=== PATIENT | female | born 1980 | race American Indian/Alaskan Native ===

== ENCOUNTER 2019-08-19 09:37 | Emergency (ER) | payer MEDICAID ==
[2019-08-19 09:47] VITALS: BP 109/68
[2019-08-19] MEDS ORDERED: FAMOTIDINE 20 MG/2 ML INJ IV ONE (10:51)
[2019-08-19] MEDS ORDERED: diphenhydrAMINE 50 MG/ML VIAL IV ONE (10:51)
[2019-08-19] MEDS ORDERED: dexAMETHasone 20 MG/5 ML VIAL IV ONE (10:51)
[2019-08-19] MEDS ORDERED: MORPHINE 4 MG/1 ML INJ IV ONE (10:51)
[2019-08-19] MEDS ORDERED: ONDANSETRON 4 MG/2 ML INJ IV ONE (10:51)
[2019-08-19] MEDS ORDERED: IPRATROPIUM/ALBUTEROL SULFATE 3 ML AMPUL.NEB IH ONE (10:52)
--- NOTE | 2019-08-19 11:35 | Emergency Department Report ---
ED Allergic Reaction HPI - General Chief complaint: Chest Pain Stated complaint: ALLERGIC REACTION Time Seen by Provider: 08/19/19 10:23 Source: patient Mode of arrival: Ambulatory Limitations: No Limitations - History of Present Illness Initial Comments: 39-year-old female the past medical history of asthma, diabetes, GERD, chronic foot and back pain presents to the hospital complaining of symptoms of allergic reaction. Last week she was bitten by an unknown insect on her forehead and had subsequent swelling to the area. Yesterday she started to have generalized hives and pruritus. She complains of a tingling sensation to her throat without tightness or shortness of breath. Patient complains of sternal chest pain that is constant and worse with palpation and movement since yesterday. She complains of chronic cough occasionally productive of green sputum due to her underlying asthma/bronchitis. She does not have any fevers. She is allergic to methylprednisone and some other medication which she cannot recall the name. Patient has taken Benadryl, GERD medicine, and Tylenol without improvement in symptoms - Related Data Allergies Allergy/AdvReac Type Severity Reaction Status Date / Time methylprednisolone Allergy Itching Verified 08/19/19 09:40 [From Solu-Medrol] ED Review of Systems ROS: Stated complaint: ALLERGIC REACTION Other details as noted in HPI Comment: All other systems reviewed and negative ED Past Medical Hx - Past Medical History Previous Medical History?: Yes Hx Diabetes: Yes Hx GERD: Yes Hx Arthritis: Yes Hx Headaches / Migraines: Yes Hx Asthma: Yes (bronchitis) Additional medical history: chronic back and foot pain - Surgical History Past Surgical History?: Yes Additional Surgical History: foot surgery. tubal ligation - Social History Smoking Status: Current Every Day Smoker Substance Use Type: None ED Physical Exam - General Limitations: No Limitations - Other Other exam information: General: No acute distress Head: Atraumatic Eyes: normal appearance ENT: Moist mucous membranes Neck: Normal appearance, no midline tenderness Chest: Mild wheezing, reproducible sternal chest tenderness CV: Regular rate and rhythm Abdomen: Soft, normal bowel sounds, nontender, nondistended, no rebound or guarding Back: Normal inspection Extremity: Normal inspection, full range of motion Neuro: Alert O x 3, no facial asymmetry, speech clear, no gross motor sensory deficit Psych: Appropriate behavior Skin: Generalized hives ED Course Vital Signs 06/30/20 06/30/20 09:40 11:14 Temperature 98.1 F Pulse Rate 97 H Pulse Rate [ 91 H Bilateral] Respiratory 16 Rate Respiratory 17 Rate [Bilateral ] Blood Pressure 109/68 O2 Sat by Pulse 99 Oximetry - Reevaluation(s) Reevaluation #1: 08/19/19 11:45 meds and cxr were ordered pt expressed that she might be therefore test was ordered I was informed by nurse that she wanted to leave without treatment. ED Medical Decision Making - Medical Decision Making I went to speak to patient prior to her leaving. She states she got the meds and she is ready to go and did not know what she was waiting on. Patient also expressing she still having pain in her chest and wanted to be written for pain medication. I explained that since she expressed that she might be we are waiting on test to get a chest x-ray. She does states she does not want a chest x-ray. I also explained that there is a period of observation that is performed after receiving medications for allergic reaction to ensure that it does not progress. Patient is agitated and states she wants to leave. Patient has been agitated since initial contact during history of present illness as well and remains that way despite ed treatment and is leaving the department against medical advice. Critical Care Time: No Critical care attestation.: If time is entered above; I have spent that time in minutes in the direct care of this critically ill patient, excluding procedure time. ED Disposition Clinical Impression: Costochondritis, acute, Allergic reaction Disposition: DC-07 LEFT AGAINST MED ADVICE Is pt being admited?: No Condition: Stable Forms: AMA Form, Work/School Release Form(ED) Time of Disposition: 11:52
== END 2019-08-19 11:55 | disposition left against medical advice (07) ==
LOC: ED 09:37
DX: M94.0 Chondrocostal junction syndrome [Tietze] (principal); T78.40XA Allergy, unspecified, initial encounter; E11.9 Type 2 diabetes mellitus without complications; K21.9 Gastro-esophageal reflux disease without esophagitis; M19.90 Unspecified osteoarthritis, unspecified site; J45.909 Unspecified asthma, uncomplicated; F17.200 Nicotine dependence, unspecified, uncomplicated; Z98.51 Tubal ligation status; Z79.899 Other long term (current) drug therapy; Z88.8 Allergy status to other drugs, medicaments and biological substances
CPT/HCPCS: 93005; 94640; 96374; 96375; 99283; J1100; J1200; J2270; J2405; 94644

== ENCOUNTER 2021-07-30 13:11 | Emergency (ER) | payer MEDICAID ==
[2021-07-30] MEDS ORDERED: IPRATROPIUM 0.02% NEBU 2.5 ML IH ONE (16:55)
[2021-07-30] MEDS ORDERED: ALBUTEROL 2.5 MG/3 ML NEBU IH ONE (16:55)
[2021-07-30] MEDS ORDERED: dexAMETHasone 20 MG/5 ML VIAL IV ONE (16:56)
[2021-07-30] MEDS ORDERED: LORazepam 2 MG/ML VIAL IV ONE (16:56)
[2021-07-30 17:40] LABS: Hematocrit 41.1 % (30.3-42.9); Hemoglobin 13.2 gm/dl (10.1-14.3); Mean Corpuscular HGB Conc 32 % (30-34); Mean Corpuscular Volume 89 fl (79-97); Platelet Count 231 K/mm3 (140-440); Red Blood Count 4.64 M/mm3 (3.65-5.03); Red Cell Distribution Width 14.9 % (13.2-15.2)
[2021-07-30 18:00] LABS: Alanine Aminotransferase 18 units/L (7-56); Albumin 4.6 g/dL (3.9-5); Blood Urea Nitrogen 13 mg/dL (7-17); Calcium 9.6 mg/dL (8.4-10.2); Hemolysis Index 4
[2021-07-30 18:06] LABS: BUN/Creatinine Ratio 19
--- NOTE | 2021-07-30 19:02 | XRay Report ---
CHEST 2 VIEWS INDICATION / CLINICAL INFORMATION: cough, dyspnea. COMPARISON: None available. FINDINGS: SUPPORT DEVICES: None. HEART / MEDIASTINUM: No significant abnormality. LUNGS / PLEURA: No significant pulmonary or pleural abnormality. No pneumothorax. ADDITIONAL FINDINGS: No significant additional findings. IMPRESSION: 1. No acute findings. Signer Name: Claude Don MD Signed: 07/30/2021 6:58 PM Workstation Name: [id number]
[2021-07-30] MEDS ORDERED: ONDANSETRON 4 MG/2 ML INJ IV ONE (19:07)
--- NOTE | 2021-07-30 19:24 | Emergency Department Report ---
- General Chief Complaint: Anxiety Stated Complaint: ANXIETY Source: EMS Mode of arrival: Stretcher Limitations: No Limitations - History of Present Illness Initial Comments: Patient is a 41-year-old -Irish female with a history of asthma, anxiety and depression, chronic low back pain, GERD, migraine headaches, chronic osteoarthritis, and yjb-hukfcfl-mulctjvfh diabetes who presents to the ED with complaint of acute onset persistent nasal and sinus congestion, frontal sinus pressure, sore throat, hoarseness, persistent dry cough with wheezing and shortness of breath, diffuse body aches and pains, nausea and vomiting for the last 3 days. Patient states that she has been using her albuterol inhaler and nebulizers at home with no relief. Patient states that she ran out of all her medications and decided come to the ED for evaluation. Patient denies dizziness, syncope, fever, chills, diarrhea, dysuria, urinary frequency and urgency, abdominal pain, chest pain, back pain, neck pain or change in vision. MD Complaint: cough, sore throat, rhinorrhea, nasal congestion, sinus pain, other (Shortness of breath with wheezing; anxiety) -: Sudden, days(s) (3) Severity: severe Severity scale (0 -10): 7 Quality: sharp, aching Consistency: constant Improves With: nothing Worsens With: nothing Context: sick contacts Associated Symptoms: denies other symptoms, headache, rhinorrhea, nasal congestion, sore throat, cough, shortness of breath, nausea. denies: fever, chills, myalgias, diaphoresis, stiff neck, chest pain, abdominal pain, vomiting, diarrhea, dysuria, rash, confusion, right sweats, weight loss, epistaxis, hoarseness, ear pain, other Treatments Prior to Arrival: none - Related Data Previous Rx's Medication Instructions Recorded Last Taken Type ALBUTEROL NEB's [Proventil 0.083% 3 ml IH Q6H PRN #75 ml 07/30/21 Unknown Rx NEBS] Albuterol Sulfate [Proventil Hfa] 1 - 2 puff IH Q4H PRN #1 inh 07/30/21 Unknown Rx Azithromycin [Zithromax Z-AIRAM] 250 mg PO DAILY #6 tab 07/30/21 Unknown Rx Benzonatate [Tessalon Perles] 100 mg PO Q8HR #30 cap 07/30/21 Unknown Rx Cetirizine HCl [Zyrtec 10mg tab] 10 mg PO DAILY #30 tab 07/30/21 Unknown Rx Ibuprofen [Motrin] 800 mg PO Q8HR PRN #30 tablet 07/30/21 Unknown Rx Ondansetron [Zofran Odt] 4 mg PO Q8HR PRN #15 tab.rapdis 07/30/21 Unknown Rx Prednisone [predniSONE 10 mg 10 mg PO .TAPER #21 07/30/21 Unknown Rx (6-Day Pack, 21 Tabs)] Allergies Allergy/AdvReac Type Severity Reaction Status Date / Time methylprednisolone Allergy Itching Verified 07/30/21 13:20 [From Solu-Medrol] ED Review of Systems ROS: Stated complaint: ANXIETY Other details as noted in HPI Constitutional: malaise. denies: fever, weakness Eyes: denies: eye pain, eye discharge, vision change ENT: throat pain, congestion, other (Frontal sinus pressure). denies: ear pain Respiratory: cough, shortness of breath, wheezing Cardiovascular: denies: chest pain, palpitations Endocrine: no symptoms reported Gastrointestinal: nausea, vomiting. denies: abdominal pain, diarrhea Genitourinary: denies: urgency, dysuria, discharge Musculoskeletal: arthralgia, myalgia. denies: back pain, joint swelling Skin: denies: rash, lesions Neurological: denies: headache, weakness, paresthesias Psychiatric: anxiety. denies: depression, auditory hallucinations, visual hallucinations, suicidal thoughts Hematological/Lymphatic: denies: easy bleeding, easy bruising ED Past Medical Hx - Past Medical History Hx Diabetes: Yes Hx GERD: Yes Hx Arthritis: Yes Hx Headaches / Migraines: Yes Hx Psychiatric Treatment: Yes (Anxiety and depression) Hx Asthma: Yes (bronchitis) Additional medical history: chronic back and foot pain - Surgical History Additional Surgical History: foot surgery. tubal ligation - Social History Smoking Status: Current Every Day Smoker Substance Use Type: None - Medications Home Medications: Home Medications Medication Instructions Recorded Confirmed Last Taken Type ALBUTEROL NEB's [Proventil 0.083% 3 ml IH Q6H PRN #75 ml 07/30/21 Unknown Rx NEBS] Albuterol Sulfate [Proventil Hfa] 1 - 2 puff IH Q4H PRN #1 inh 07/30/21 Unknown Rx Azithromycin [Zithromax Z-AIRAM] 250 mg PO DAILY #6 tab 07/30/21 Unknown Rx Benzonatate [Tessalon Perles] 100 mg PO Q8HR #30 cap 07/30/21 Unknown Rx Cetirizine HCl [Zyrtec 10mg tab] 10 mg PO DAILY #30 tab 07/30/21 Unknown Rx Ibuprofen [Motrin] 800 mg PO Q8HR PRN #30 tablet 07/30/21 Unknown Rx Ondansetron [Zofran Odt] 4 mg PO Q8HR PRN #15 tab.rapdis 07/30/21 Unknown Rx Prednisone [predniSONE 10 mg 10 mg PO .TAPER #21 07/30/21 Unknown Rx (6-Day Pack, 21 Tabs)] ED Physical Exam - General Limitations: No Limitations General appearance: alert, in no apparent distress, anxious - Head Head exam: Present: atraumatic, normocephalic, normal inspection - Eye Eye exam: Present: normal appearance, PERRL Pupils: Present: normal accommodation - ENT ENT exam: Present: mucous membranes moist, TM's normal bilaterally, normal external ear exam, other (Grossly congested nasal passages; palpable frontal sinus tenderness; mild erythematous oropharynx, no sign of peritonsillar abscess) - Neck Neck exam: Present: normal inspection, full ROM, lymphadenopathy (Palpable anterior cervical lymphadenopathy). Absent: tenderness - Respiratory Respiratory exam: Present: wheezes (Diffuse coarse wheezes throughout). Absent: normal lung sounds bilaterally, respiratory distress, rales, rhonchi, chest wall tenderness, accessory muscle use - Cardiovascular Cardiovascular Exam: Present: regular rate, normal rhythm, normal heart sounds. Absent: systolic murmur, diastolic murmur, rubs, gallop - GI/Abdominal GI/Abdominal exam: Present: soft, normal bowel sounds. Absent: tenderness, guarding, rebound, hyperactive bowel sounds, hypoactive bowel sounds, organomegaly, mass - Extremities Exam Extremities exam: Present: normal inspection, full ROM, normal capillary refill. Absent: tenderness - Back Exam Back exam: Present: normal inspection, full ROM. Absent: tenderness, CVA tenderness (R), CVA tenderness (L), muscle spasm, paraspinal tenderness, vertebral tenderness - Neurological Exam Neurological exam: Present: alert, oriented X3, CN II-XII intact, normal gait, reflexes normal - Psychiatric Psychiatric exam: Present: normal affect, normal mood, anxious. Absent: depressed, homicidal ideation, suicidal ideation - Skin Skin exam: Present: warm, dry, intact, normal color. Absent: rash ED Course Vital Signs 07/30/21 07/30/21 13:17 17:29 Temperature 97.9 F Pulse Rate 90 Pulse Rate [ 103 H Anterior Bilateral Throughout] Respiratory 16 Rate Respiratory 20 Rate [Anterior Bilateral Throughout] Blood Pressure 150/90 [Left] O2 Sat by Pulse 99 Oximetry ED Medical Decision Making - Lab Data Result diagrams: 07/30/21 17:01 07/30/21 17:01 - Radiology Data Radiology results: report reviewed, image reviewed [facility] [address] [place] [address] XRay Report Signed Patient: SAGAR COSME MR#: [id number] : 1980 Acct:[id number] Age/Sex: 41 / F ADM Date: 07/30/21 Loc: ED Attending Dr: Ordering Physician: SUSANA BACA Date of Service: 07/30/21 Procedure(s): XR chest routine 2V Accession Number(s): [id number] cc: SUSANA BACA Fluoro Time In Minutes: CHEST 2 VIEWS INDICATION / CLINICAL INFORMATION: cough, dyspnea. COMPARISON: None available. FINDINGS: SUPPORT DEVICES: None. HEART / MEDIASTINUM: No significant abnormality. LUNGS / PLEURA: No significant pulmonary or pleural abnormality. No pneumothorax. ADDITIONAL FINDINGS: No significant additional findings. IMPRESSION: 1. No acute findings. Signer Name: Claude Driscoll MD Signed: 07/30/2021 6:58 PM Workstation Name: [id number] Transcribed By: SB Dictated By: CLAUDE DRISCOLL MD Electronically Authenticated By: CLAUDE DRISCOLL MD Signed Date/Time: 07/30/211857 DD/ 57 TD/TT: - Medical Decision Making This is a 41-year-old -Irish female with a history of asthma, anxiety and depression, chronic low back pain, GERD, migraine headaches, chronic osteoarthritis, and het-rrqmjsu-blifsdeic diabetes who presents to the ED with complaint of acute onset persistent nasal and sinus congestion, frontal sinus pressure, sore throat, hoarseness, persistent dry cough with wheezing and shortness of breath, diffuse body aches and pains, nausea and vomiting for the last 3 days. Patient states that she has been using her albuterol inhaler and nebulizers at home with no relief. Patient states that she ran out of all her medications and decided come to the ED for evaluation. In the ED, patient is alert and oriented x3 and is not in any distress. Patient vital signs are sta ble with oxygen saturation of 99% on room air. Patient received nebulizer treatment for albuterol and ipratropium in the ED, also received Decadron 10 mg IV x1, antiemetics and pain medications. Chest x-ray showed no acute cardiopulmonary abnormalities or pneumonitis. Lab test results were reviewed and are all nonactionable. On reevaluation, patient felt better, wheezing resolved, patient was discharged home on medications and advised to follow-up with her primary care physician in 7 to 10 days for reevaluation or return to the ED immediately if symptoms get worse. - Differential Diagnosis Asthma; bronchitis; URI; anxiety; pharyngitis; sinusitis Critical care attestation.: If time is entered above; I have spent that time in minutes in the direct care of this critically ill patient, excluding procedure time. ED Disposition Clinical Impression: Acute upper respiratory infection, Acute bronchitis with asthma with acute exacerbation, Anxiety as acute reaction to exceptional stress Acute pansinusitis, unspecified Qualifiers: Recurrence: non-recurrent Qualified Code(s): J01.40 - Acute pansinusitis, unspecified Acute pharyngitis Qualifiers: Pharyngitis/tonsillitis etiology: unspecified etiology Qualified Code(s): J02.9 - Acute pharyngitis, unspecified Disposition: 01 HOME / SELF CARE / HOMELESS Is pt being admited?: No Does the pt Need Aspirin: No Condition: Stable Instructions: Sinusitis, Adult, [id number], Upper Respiratory Infection, Adult, [id number], Acute Bronchitis, Adult, [id number], Generalized Anxiety Disorder, Adult, Asthma, Adult, [id number], Pharyngitis, [id number]-[id number] Additional Instructions: All lab test results were reviewed and are all nonactionable. Chest x-ray showed no acute cardiopulmonary abnormalities or pneumonitis. Therefore take medications with food, drink plenty of fluids and follow-up with your primary care physician in 7 to 10 days for reevaluation. Return to the ED immediately if symptoms get worse. Prescriptions: Ibuprofen [Motrin] 800 mg PO Q8HR PRN #30 tablet PRN Reason: Pain , Severe (7-10) Prednisone [predniSONE 10 mg (6-Day Pack, 21 Tabs)] 10 mg PO .TAPER #21 ALBUTEROL NEB's [Proventil 0.083% NEBS] 3 ml IH Q6H PRN #75 ml PRN Reason: Wheezing Albuterol Sulfate [Proventil Hfa] 1 - 2 puff IH Q4H PRN #1 inh PRN Reason: Shortness Of Breath Benzonatate [Tessalon Perles] 100 mg PO Q8HR #30 cap Azithromycin [Zithromax Z-AIRAM] 250 mg PO DAILY #6 tab Ondansetron [Zofran Odt] 4 mg PO Q8HR PRN #15 tab.rapdis PRN Reason: Nausea Cetirizine HCl [Zyrtec 10mg tab] 10 mg PO DAILY #30 tab Referrals: [facility] [Provider Group] - 7-10 days Time of Disposition: 19:30 Print Language: YI
[2021-07-30 20:14] VITALS: BP 125/85
[2021-07-30 22:53] LABS: Anisocytosis 1+; Basophils % (Manual) 0 % (0.0-1.8); Platelet Estimate Consistent w Auto; Total Cells Counted 100
== END 2021-07-30 20:06 | disposition home or self-care (01) ==
LOC: ED 13:11
DX: J06.9 Acute upper respiratory infection, unspecified (principal); J45.901 Unspecified asthma with (acute) exacerbation; F41.9 Anxiety disorder, unspecified; J01.40 Acute pansinusitis, unspecified
CPT/HCPCS: 36415; 71046; 80053; 84703; 85007; 85025; 94640; 96374; 96375; 99284; J1100; J2060; J2405; 94644